=== PATIENT | female | born 1945 | race Caucasian/White ===

== ENCOUNTER 2019-07-27 15:00 | Inpatient (IN) | payer SELFPAY ==
[2019-07-27] MEDS ORDERED: POLYETHYLENE GLYCOL PO SCH (16:00)
[2019-07-27] MEDS: POLYETHYLENE GLYCOL PO SCH ×2 (16:32→17:29)
[2019-07-27] MEDS ORDERED: OLANZapine 10 MG Tab PO SCH (20:00)
[2019-07-27] MEDS ORDERED: OLANZapine 5 MG Tab PO SCH (20:00)
--- NOTE | 2019-07-27 20:44 | PCM.HP.2 ---
H&P History of Present Illness - General Date of Service: 07/27/19 Admit Problem/Dx: Admission Diagnosis/Problem Admission Diagnosis/Problem Colonoscopy - History of Present Illness Initial Comments - Free Text/Narative: HPI: At her Annual Physical in 02/11 she had FOB by FIT ordered and this came back positive. 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 Her colonoscopy was deferred until her Chemo Rx was completed, so she is due for that now. She had a preop physical 07/13/19, but because of her schizophrenia, limited functioning at home, she needs admission to swing bed to assure that she is getting adequate prep, so she needs this physical for the hospitalization. She has had no changes, no URIs or other problems since the clinic visit of 07/13/19, so most of the information is from that, heart and lung exam are repeated. She has chronic atrial fibrillation, is on Eliquis and that has been appropriately held for this procedure. Medical History: -Hospitalized [facility] 1990, 09/24. -Hospitalized in [place] for erosive esophagitis, staph sepsis, anemia from bleeding, transfusion, cholestatic jaundice possibly from Cipro 03/27. -Abnormal Pap, ASCUS 06/01, rep. 11/29 OK, neg 06/02, 06/03 -06/02 L carotid bruit, u.s. showed minimal narrowing, 1-15% -11/30 elevated liver enzymes, repeat 12/31 OK, viral hepatitis studies all normal -03/03 mild elevation of TSH, borderline 06/05, OK 07/07 -05/05 Rx Augmentin for RML pneumonia; F/U requested on CXR, OK 07/07 -12/06 UGI and swallowing evaluation for dysphagia, was OK -02/11 DX of ductal carcinoma L breast, see above Surgical History: -Para 1 in 1988. -No other surgery. -Colonoscopy and EGD 06/01 for screening and dysphagia, hx of erosive esophagitis : hyperplastic colon, benign gastric polyps, next colon 10 yr -Dremel R great toenail 06/01, 11/29 w w w w w Family History: -F d. ' of myocardial infarction. -[place]kin de [place]. '15 d. age 89, had a stroke, lives in [facility]. -B lives in [place], had some illness and is improving 05/31. Still not well , related to alcohol, patient thinks. Social History: [facility] client in [facility] since 2002. Cousin, Kimberly Saldana, of [place] is guardian. Later changed to [place] apparently. Her one child was adopted out. Originally from [place], her mother d. in [place] there age 97. No longer a client of [facility] since discontinuation of the ILP. Systems Review: -Constitutional: Weight is up about 10 pounds after the Chemo Rx for breast CA, some of that weight gain was ankle edema. -HEENT: Dentures above and edentulous below. Hearing good. Past her swallowing eval in 12/06 -Eyes: Gets regular eye exams, wears glasses for reading and taking her medications -Respiratory: Never a smoker, lungs OK, occasional he has a cough but none recently; had a flu shot last fall -Cardiovascular: No exertional chest pain or other problems, temporarily holding the Eliquis that she takes for chronic atrial fibrillation -GI: Her previous colonoscopy was in 06/01, then the POSITIVE FIT test as noted above -Endocrine: On Zocor; her last glucose was 110, probably was nonfasting : Denies any trouble with urine incontinence. Pap was OK 08/06, no more planned. See above regarding her breast CA -Musculoskeletal: She had a mild injury to her R leg a couple weeks ago where she nearly fell, but the pain has now cleared, no trouble with arthritis. -Skin: Denies any problems -Allergy: Denies any seasonal allergies -Neurologic: No syncopal spells, denies significant headaches -Heme: No easy bruising or bleeding, is on Eliquis for atrial fib -Psych: She sees Dr. Sylvester at [facility] every 3 months, no medication changes recently Medications: -Prilosec 20 mg daily -Eliquis 5 mg BID, on hold -Arimidex 1 mg daily, on hold -Also on Pepcid and Zantac, on hold -Zocor 10 mg daily, on hold -Tums, 2 daily -Calcium/vitamin D, 1 BID -Zyprexa 25 mg (20+5) daily Physical Exam: -Constitutional: Affect normal, vital signs OK -HEENT: TMs normal, hearing seems OK; only a few teeth remaining below, dentures above, posterior pharynx and tongue normal -Eyes: Pupils equal, EOMs normal -Neck: No thyroid enlargement or masses, has had a bruit in past but not heard on her most recent exam -Cardiovascular: Rhythm mildly irregular, no murmur, 1+ edema of L foot and ankle only, good dorsalis pedis pulses bilateral -Pulmonary: Lungs clear -Abdominal: Soft and nontender, no organomegaly or masses -: Breasts not examined, no SHIP SCRAPER exam -Musculoskeletal: Joints appear normal, walks with a slight stoop -Neurologic: Speech, gait OK, no tremor noted today though she has had in the past -Skin: No suspicious lesions noted -Psych: Lucid, alert, cooperative with exam Impression: -Positive fecal occult blood by FIT, scheduled for colonoscopy, needs prep in hospital to make sure it is done correctly Problems: -Breast cancer -Schizophrenia, HX of hospitalization and and 09/24 -Impaired Fasting Glucose, last FBS was 99 -Atrial fibrillation, persistent, on Eliquis 5 mg BID -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 D/C back home as soon as she is walking and eating OK. - Related Data Allergies/Adverse Reactions: Allergies Allergy/AdvReac Type Severity Reaction Status Date / Time No Known Allergies Allergy Verified 07/27/19 15:35 Home Medications: Home Meds Apixaban [Eliquis] 5 mg PO BID 02/09/19 [History] OLANZapine [ZyPREXA] 5 mg PO BEDTIME 02/09/19 [History] OLANZapine [ZyPREXA] 20 mg PO BEDTIME 02/09/19 [History] Simvastatin 10 mg PO BEDTIME 02/09/19 [History] Anastrozole [Arimidex] 1 mg PO DAILY 07/14/19 [History] Eucalyptus Oil/Menthol/Camphor [Vicks Vaporub Ointment] 1 applic TOP ASDIRECTED PRN 07/14/19 [History] Famotidine [Pepcid] 20 mg PO DAILY 07/14/19 [History] Omeprazole 20 mg PO DAILY 07/14/19 [History] Calc/D3/Mag/Zn/Vicky/Cuauhtemoc/[place] [Calcium 600 MG Plus Vit D] 1 tab PO BID [History] Calcium Carbonate [Tums] 500 mg PO ASDIRECTED PRN 07/27/19 [History] Diphenhydra/Phenyleph/Acetamin [Cold & Flu Relief Multi-Sym Lq] 30 ml PO Q6H PRN 07/27/19 [History] Past Medical History HEENT History: Reports: Cataract, Other (See Below) Other HEENT History: dental caries Cardiovascular History: Reports: Afib, High Cholesterol, Other (See Below) Other Cardiovascular History: vericose veins. carotid stenosis Gastrointestinal History: Reports: Other (See Below) Other Gastrointestinal History: dysphagia Genitourinary History: Reports: Other (See Below) Other Genitourinary History: cystocele PETROLEUM SAMPLER History: Reports: Other (See Below) Other OB/BYN History: abnormal pap Neurological History: Reports: Other (See Below) Other Neuro History: tremors due to multiple meds Psychiatric History: Reports: Schizophrenia Endocrine/Metabolic History: Reports: Obesity/BMI 30+, Other (See Below) Other Endocrine/Metabolic History: impaired fasting glucose. abnormal TSH Oncologic (Cancer) History: Reports: Breast Dermatologic History: Reports: Other (See Below) Other Dermatologic History: onychodystrophy - Past Surgical History Oncologic Surgical History: Reports: Biopsy of Breast, Lumpectomy Social & Family History - Family History Family Medical History: Noncontributory - Tobacco Use Smoking Status *Q: Never Smoker - Recreational Drug Use Recreational Drug Use: No H&P Review of Systems - Review of Systems: Review Of Systems: See Below Exam - Exam Exam: See Below - Vital Signs Vital Signs: Last Vital Signs Temp 36.9 C 07/27/19 18:00 Pulse 78 07/27/19 18:00 Resp 16 07/27/19 18:00 BP 144/80 H 07/27/19 18:00 Pulse Ox 99 07/27/19 18:00 Weight: 95.98 kg Sepsis Event Note - Evaluation Sepsis Screening Result: No Definite Risk - Focused Exam Vital Signs: Vital Signs Temp Pulse Resp BP Pulse Ox 07/27/19 18:00 36.9 C 78 16 144/80 H 99 07/27/19 15:04 37.7 C 82 16 129/67 97 Date Exam was Performed: 07/27/19 Time Exam was Performed: 20:45 Problem List Initiated/Reviewed/Updated: Yes Orders Last 24hrs: Active Orders 24 hr Category Date Time Status Admission Status [Patient Status] [ADT] Routine ADT 07/27/19 15:05 Active Communication Order [RC] DAILY Care 07/27/19 16:00 Active Communication Order [RC] DAILY Care 07/27/19 16:02 Active Non-Formulary Medication [NF Drug] Med 07/27/19 16:22 Active 0 each PO ASDIRECTED OLANZapine [ZyPREXA] Med 07/27/19 20:00 Active 20 mg PO BEDTIME OLANZapine [ZyPREXA] Med 07/27/19 20:00 Active 5 mg PO BEDTIME Omeprazole Med 07/28/19 08:00 Active 20 mg PO DAILY bisacodyL [Dulcolax] Med 07/27/19 21:00 Once 10 mg PO ONETIME ONE Medication Orders Bisacodyl (Dulcolax) 10 mg PO ONETIME ONE Stop: 07/27/19 21:01 Polyethylene Glycol 235 Gm Bottle Own Med 0 each PO ASDIRECTED VAIBHAV Last Admin: 07/27/19 17:29 Dose: 1 each Admin: 07/27/19 16:32 Dose: 1 each Olanzapine (Zyprexa) 5 mg PO BEDTIME VAIBHAV Olanzapine (Zyprexa) 20 mg PO BEDTIME VAIBHAV Omeprazole (Omeprazole) 20 mg PO DAILY VAIBHAV
[2019-07-27] MEDS ORDERED: BISACODYL 5 MG PO ONE (21:00)
[2019-07-28] MEDS ORDERED: Omeprazole 20 MG Cap.CR PO SCH (08:00)
--- NOTE | 2019-07-30 09:42 | PCM.DCSUM1 ---
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 Admitted to swing bed because she is unable to manage the colonoscopy prep by herself because of schizophrenia and mild cognitive dysfunction. Initial Findings: Unremarkable, see H&P Treatment and Course in Hospital: Her colonoscopy was difficult due to tortuosity and some residual vegetable matter in the colon, but it was completed with finding of 2 cecal polyps, 6 sigmoid polyps, 2 rectal polyps. Pathology report is pending. Condition on Discharge: She was seen by Anesthesiology and cleared for discharge as previously planned, had a meal and vital signs were stable, on 07/28/19. Not seen by PCP. Home to her previous domicile with weekly visits from Home Care Nurse. Diagnosis: Stroke: No Modified Elena Scale: No Signif.Disability Despite Sympt.Able to Carry Out Usual Act./Duties Modified Elena Scale Score: 1 - Discharge Data Discharge Date: 07/28/19 Discharge Disposition: Home, W Home Health Agency 06 Condition: Good - Referral to Home Health Date of Face to Face Encounter: 07/28/19 (Already has this arranged, visit was by black and white printer operator) Reason for Homebound Status: Schizophrenia Primary Care Physician: Rodrick Amezcua MD Skilled Need: Colonoscopy prep - Discharge Plan Home Medications: Home Meds Apixaban [Eliquis] 5 mg PO BID 02/09/19 [History] OLANZapine [ZyPREXA] 5 mg PO BEDTIME 02/09/19 [History] OLANZapine [ZyPREXA] 20 mg PO BEDTIME 02/09/19 [History] Simvastatin 10 mg PO BEDTIME 02/09/19 [History] Anastrozole [Arimidex] 1 mg PO DAILY 07/14/19 [History] Eucalyptus Oil/Menthol/Camphor [Vicks Vaporub Ointment] 1 applic TOP ASDIRECTED PRN 07/14/19 [History] Famotidine [Pepcid] 20 mg PO DAILY 07/14/19 [History] Omeprazole 20 mg PO DAILY 07/14/19 [History] Calc/D3/Mag/Zn/Vicky/Cuauhtemoc/[place] [Calcium 600 MG Plus Vit D] 1 tab PO BID [History] Calcium Carbonate [Tums] 500 mg PO ASDIRECTED PRN 07/27/19 [History] Diphenhydra/Phenyleph/Acetamin [Cold & Flu Relief Multi-Sym Lq] 30 ml PO Q6H PRN 07/27/19 [History] - Discharge Summary/Plan Comment DC Time >30 min.: No - Patient Data Vitals - Most Recent: Last Vital Signs Temp 36.3 C 07/28/19 06:36 Pulse 87 07/28/19 06:36 Resp 20 07/28/19 06:36 BP 125/56 L 07/28/19 06:36 Pulse Ox 100 07/28/19 06:36 Weight - Most Recent: 95.98 kg Med Orders - Current: Current Medications Discontinued Medications Bisacodyl (Dulcolax) 10 mg PO ONETIME ONE Stop: 07/27/19 21:01 Last Admin: 07/28/19 02:58 Dose: 10 mg Polyethylene Glycol 235 Gm Bottle Own Med 17 each PO ASDIRECTED VAIBHAV Polyethylene Glycol 235 Gm Bottle Own Med 0 each PO ASDIRECTED VAIBHAV Last Admin: 07/27/19 17:29 Dose: 1 each Olanzapine (Zyprexa) 5 mg PO BEDTIME [facility] Last Admin: 07/27/19 20:49 Dose: 5 mg Olanzapine (Zyprexa) 20 mg PO BEDTIME [facility] Last Admin: 07/27/19 20:49 Dose: 20 mg Omeprazole (Omeprazole) 20 mg PO DAILY [facility]
== END 2019-07-28 08:10 | disposition home health service (06) | DRG 394 ==
LOC: VM.MS 15:00
PROVIDERS: ADMIT Family Medicine; ATTEND Family Medicine
DX: D12.0 Benign neoplasm of cecum (principal); G24.09 Other drug induced dystonia; I48.20 Chronic atrial fibrillation, unspecified; K63.5 Polyp of colon; K62.1 Rectal polyp; C50.912 Malignant neoplasm of unspecified site of left female breast; F20.9 Schizophrenia, unspecified; T50.905A Adverse effect of unspecified drugs, medicaments and biological substances, initial encounter; G31.84 Mild cognitive impairment of uncertain or unknown etiology; E78.5 Hyperlipidemia, unspecified; E66.9 Obesity, unspecified; I65.29 Occlusion and stenosis of unspecified carotid artery; Z79.899 Other long term (current) drug therapy; Z68.29 Body mass index [BMI] 29.0-29.9, adult
CPT/HCPCS: A9270-GY

== ENCOUNTER 2019-07-28 08:14 | Day surgery (SDC) | payer MEDICARE, MEDICAID ==
[~2019-07-28 08:14] MED LIST: Lactated Ringers 1,000 ML IV SCH
[2019-07-28] MEDS ORDERED: fentaNYL 100 MCG/2 ML SDV ONE (10:31)
[2019-07-28] MEDS ORDERED: Propofol 200 MG/20 ML SDV ONE ×3 (10:31→11:14)
--- NOTE | 2019-07-28 13:25 | OR ---
PREOPERATIVE DIAGNOSIS: Positive FIT test. POSTOPERATIVE DIAGNOSIS: Multiple colon polyps. PROCEDURE PERFORMED: Total flexible colonoscopy. ANESTHESIA: MAC anesthesia. COMPLICATIONS: None. BLOOD LOSS: Minimal. FINDINGS: 1. Cecal polyps x2, 2 mm/4 mm, cold forceps. 2. Sigmoid colon polyps x6, 3 mm and 4 mm, cold forceps and cold snare. 3. Rectal polyps x2, 3 mm, cold forceps. 4. Very tortuous and difficult sigmoid colon. 5. Scattered vegetable matter within the colon. START TIME: 1039. CECUM TIME: 1102. STOP TIME: 1132. BRIEF HPI: Deanna Sandhu is a 74-year-old female with schizophrenia, who has a guardian. She had a positive FIT test recently. She does not think she has had a colonoscopy in the past, but the records are unclear. I did not see a record of one documented previously. She also does have atrial fibrillation and has held her Eliquis prior to this procedure. DESCRIPTION OF PROCEDURE: After informed consent was obtained, the patient was placed in the left lateral decubitus position. MAC anesthesia was induced by Anesthesia colleagues. The endoscope using Endocuff device was introduced in the anal canal and advanced all the way to the cecum. The sigmoid colon was very tortuous and difficult to navigate. We were able to get through it with some abdominal pressure. The appendix and IC valve were photographed. The colonoscope was then slowly withdrawn. There was no pathology other than what is mentioned in the above finding section. Retroflexed view of the rectum was unremarkable. The rectum was desufflated and the colonoscope was withdrawn. BOWEL PREP: Munising class 2. PATHOLOGY: A) Cecal polyp x2 Tubular adenomas B) Sigmoid polyp x5 Hyperplastic polyps C) Rectal polyp x2 Hyperplastic polyps Recommended colonoscopy in 5 years. RKM: 07/28/2019 11:39:10 MODL: 07/28/2019 13:19:07 /[id number] MARCELINA
--- NOTE | 2019-08-09 10:56 | LETTER ---
08/04/2019 Alize Buchanan Ocampo [address] [place] [address], [address] [id number] RE: ALIZE OCAMPO : 1945 Dear Ms. Ocampo: I am writing to you to inform you of the results of your recent colonoscopy. You had a polyp called tubular adenoma. This polyp does not contain cancer, but it can become cancer in the future, which is why I removed them. You also had some hyperplastic polyps which are benign polyps and do not carry a risk of cancer in the future. You will need another colonoscopy in 5 years. Warmest regards, CC: MD Rodrick Jones MD
== END 2019-07-28 13:25 | disposition home or self-care (01) ==
LOC: VM.SDS 08:14
PROVIDERS: ATTEND Student in an Organized Health Care Education/Training Program
DX: D12.0 Benign neoplasm of cecum (principal); K63.5 Polyp of colon; K62.1 Rectal polyp; Q43.8 Other specified congenital malformations of intestine; I48.91 Unspecified atrial fibrillation; E78.5 Hyperlipidemia, unspecified; F20.9 Schizophrenia, unspecified; E66.9 Obesity, unspecified; Z68.29 Body mass index [BMI] 29.0-29.9, adult; Z79.01 Long term (current) use of anticoagulants; Z79.899 Other long term (current) drug therapy
CPT/HCPCS: 00811; 45380; 45385; J2704; J3010; J7120; 88305

== ENCOUNTER 2024-06-15 09:18 | Inpatient (IN) | payer MEDICARE, MEDICAID ==
[2024-06-15] MEDS: Lactated Ringers 1,000 ML IV ONE (09:30)
[2024-06-15 09:56] LABS: BASOPHILS PERCENT AUTO 0.1 % (0.2-1.2); EOSINOPHILS PERCENT AUTO 0.1 % (0.0-4.0); HEMATOCRIT 39.2 % (33.0-47.0); HEMOGLOBIN 12.7 g/dL (12.0-16.0); IMMATURE GRAN ABSOLUTE AUTO 0.02 x10^3/uL (0.00-0.07); LYMPHOCYTES ABSOLUTE AUTO 0.9 x10^3/uL (1.0-4.8); LYMPHOCYTES PERCENT AUTO 7.2 % (25.0-50.0); MEAN CORPUSCULAR HEMOGLOBIN 29.4 pg (26.0-32.0); MEAN CORPUSCULAR HGB CONC 32.4 g/dL (32.0-36.0); MEAN CORPUSCULAR VOLUME 90.7 fL (78.0-93.0); MONOCYTES ABSOLUTE AUTO 0.9 x10^3/uL (0.0-0.8); MONOCYTES PERCENT AUTO 7.3 % (2.0-11.0); NEUTROPHILS ABSOLUTE AUTO 10.3 x10^3/uL (1.8-7.7); NEUTROPHILS PERCENT AUTO 85.1 % (50.0-80.0); PLATELET COUNT,PLT 290 x10^3/uL (130-400); RED BLOOD CELL COUNT 4.32 x10^6/uL (4.00-5.50); WHITE BLOOD CELL COUNT,WBC 12.1 x10^3/uL (4.0-10.0)
[2024-06-15 10:24] LABS: ESTIMATED GFR 57 mL/min (>=60)
[2024-06-15 10:38] LABS: A/G RATIO 0.64; ALANINE AMINOTRANSFERASE,ALT 56 U/L (14-59); ALKALINE PHOSPHATASE 109 U/L (46-116); ANION GAP 12.9 mmol/L (5-15); ASPARTATE AMNIOTRANSFERASE,AST 214 U/L (15-37); BILIRUBIN TOTAL 0.7 mg/dL (0.2-1.0); BLOOD UREA NITROGEN,BUN 22 mg/dL (7-18); C-REACTIVE PROTEIN 9.87 mg/dL (<=0.50); CALCIUM 9.4 mg/dL (8.5-10.1); CARBON DIOXIDE,CO2 30 mmol/L (21-32); CHLORIDE,CL 104 mmol/L (98-107); GLUCOSE RANDOM 118 mg/dL (70-99); LIPASE 35 U/L (19-71); PROTEIN TOTAL,TP 7.7 g/dL (6.4-8.2); SODIUM,NA 144 mmol/L (136-145)
[2024-06-15 10:39] LABS: CREATINE KINASE,CK 4777 U/L (26-192)
[2024-06-15 10:40] LABS: POTASSIUM,K 2.9 mmol/L (3.5-5.1)
[2024-06-15 11:01] LABS: MAGNESIUM 1.8 mg/dL (1.8-2.4); PHOSPHORUS 3.2 mg/dL (2.6-4.7)
[2024-06-15] MEDS: Potassium Chloride Riders 20 MEQ in Premix Bag 1 BAG IV ONE (11:30)
[2024-06-15] MEDS: Potassium Bicarbonate/Cit Ac 10 MEQ Effervescent Tab PO ONE (11:39)
[2024-06-15] MEDS: Ondansetron 4 MG/2 ML SDV IVPUSH ONE (12:09)
[2024-06-15] MEDS: Iopamidol 612 MG/ML 100 ML Bottle IVPUSH ONE (12:49)
[2024-06-15 14:50] LABS: APPEARANCE,URINE CLOUDY (CLEAR); BILIRUBIN,URINE SMALL (NEGATIVE); COLOR,URINE YELLOW (YELLOW); GLUCOSE,URINE NEGATIVE (NEGATIVE); KETONES,URINE NEGATIVE (NEGATIVE); LEUKOCYTE ESTERASE,URINE LARGE (NEGATIVE); NITRITE,URINE NEGATIVE (NEGATIVE); OCCULT BLOOD,URINE MODERATE (NEGATIVE); PH,URINE 8.5 (5.0-8.0); PROTEIN,URINE 30 mg/dL (NEGATIVE); UROBILINOGEN,URINE 0.2 EU/dL (0.2)
[2024-06-15 14:56] LABS: AMORPHOUS SEDIMENT,URINE MODERATE; BACTERIA,URINE MANY /HPF (NOT SEEN); MUCUS,URINE FEW /LPF (NOT SEEN); SQUAMOUS EPITHELIAL CELLS,UR FEW /HPF (NOT SEEN); WBC,URINE 30-40 /HPF (NOT SEEN)
[2024-06-15] MEDS ORDERED: Polyethylene Glycol 3350 Powder 17 GM Packet PO PRN (16:42)
[2024-06-15] MEDS ORDERED: Ondansetron 4 MG Tab.DIS PO PRN (16:42)
[2024-06-15] MEDS ORDERED: [UNRECOGNIZED DRUG - OTHER] PO PRN (16:48)
[2024-06-15] MEDS ORDERED: ACETAMINOPHEN PO PRN (16:48)
[2024-06-15] MEDS ORDERED: DOXYLAMINE PO PRN (16:48)
[2024-06-15] MEDS ORDERED: Calcium Carbonate 1,250 MG/5 ML Susp 5 ML UD Cup PO PRN (17:24)
[2024-06-15 17:30] LABS: LACTIC ACID 1.5 mmol/L (0.4-2.0)
[2024-06-15] MEDS: cefTRIAXone 1 GM Vial IVPUSH SCH (17:56)
[2024-06-15] MEDS: Potassium Chloride 10 MEQ Tab.ER PO SCH (17:57)
[2024-06-15] MEDS: NS with KCl 40mEq 1,000 ML IV SCH (18:04)
[2024-06-15] MEDS: Magnesium Sulfate/Water Premix 2 GM in Premix Bag 1 BAG IV ONE (21:02)
[2024-06-15] MEDS: Pravastatin 20 MG Tab PO SCH (21:02)
[2024-06-15] MEDS: OLANZapine 10 MG Tab PO SCH (21:02)
[2024-06-15] MEDS: Apixaban 5 MG Tab PO SCH (21:03)
[2024-06-15] MEDS: OLANZapine 5 MG Tab PO SCH (21:03)
[2024-06-16] MEDS: Omeprazole 20 MG Cap.CR PO SCH (06:22)
[2024-06-16 06:54] LABS: BASOPHILS PERCENT AUTO 0.1 % (0.2-1.2); EOSINOPHILS ABSOLUTE AUTO 0.1 x10^3/uL (0.0-0.5); EOSINOPHILS PERCENT AUTO 1.5 % (0.0-4.0); HEMATOCRIT 30.9 % (33.0-47.0); IMMATURE GRAN ABSOLUTE AUTO 0.02 x10^3/uL (0.00-0.07); LYMPHOCYTES ABSOLUTE AUTO 1.1 x10^3/uL (1.0-4.8); LYMPHOCYTES PERCENT AUTO 12.1 % (25.0-50.0); MEAN CORPUSCULAR HEMOGLOBIN 29.9 pg (26.0-32.0); MEAN CORPUSCULAR HGB CONC 32.4 g/dL (32.0-36.0); MEAN CORPUSCULAR VOLUME 92.5 fL (78.0-93.0); MONOCYTES ABSOLUTE AUTO 0.8 x10^3/uL (0.0-0.8); MONOCYTES PERCENT AUTO 9.1 % (2.0-11.0); NEUTROPHILS ABSOLUTE AUTO 6.9 x10^3/uL (1.8-7.7); PLATELET COUNT,PLT 223 x10^3/uL (130-400); RED BLOOD CELL COUNT 3.34 x10^6/uL (4.00-5.50); WHITE BLOOD CELL COUNT,WBC 8.9 x10^3/uL (4.0-10.0)
[2024-06-16 07:26] LABS: ANION GAP 9.7 mmol/L (5-15); CALCIUM 8.1 mg/dL (8.5-10.1); CREATININE 0.7 mg/dL (0.55-1.02); EST CRCL DRUG DOSING (CG) 65.74 mL/min; POTASSIUM,K 4.7 mmol/L (3.5-5.1)
[2024-06-16] MEDS: Ferrous Sulfate 325 MG Tab PO SCH (08:29)
[2024-06-16] MEDS: ANASTROZOLE 1 MG PO SCH (09:56)
[2024-06-16] MEDS: Calcium Carbonate/Vitamin D3 1250 MG-5 MCG Tab PO SCH (12:13)
[2024-06-16] MEDS: Anastrozole 1 MG Tab PO SCH (13:11)
[2024-06-17 06:42] LABS: BASOPHILS PERCENT AUTO 0.1 % (0.2-1.2); EOSINOPHILS ABSOLUTE AUTO 0.2 x10^3/uL (0.0-0.5); EOSINOPHILS PERCENT AUTO 2.2 % (0.0-4.0); HEMATOCRIT 29.4 % (33.0-47.0); HEMOGLOBIN 9.5 g/dL (12.0-16.0); IMMATURE GRAN ABSOLUTE AUTO 0.03 x10^3/uL (0.00-0.07); LYMPHOCYTES ABSOLUTE AUTO 1.1 x10^3/uL (1.0-4.8); LYMPHOCYTES PERCENT AUTO 11.7 % (25.0-50.0); MEAN CORPUSCULAR HEMOGLOBIN 29.9 pg (26.0-32.0); MEAN CORPUSCULAR HGB CONC 32.3 g/dL (32.0-36.0); MEAN CORPUSCULAR VOLUME 92.5 fL (78.0-93.0); MONOCYTES ABSOLUTE AUTO 0.8 x10^3/uL (0.0-0.8); MONOCYTES PERCENT AUTO 8.2 % (2.0-11.0); NEUTROPHILS ABSOLUTE AUTO 7.1 x10^3/uL (1.8-7.7); NEUTROPHILS PERCENT AUTO 77.5 % (50.0-80.0); PLATELET COUNT,PLT 212 x10^3/uL (130-400); RED BLOOD CELL COUNT 3.18 x10^6/uL (4.00-5.50); WHITE BLOOD CELL COUNT,WBC 9.1 x10^3/uL (4.0-10.0)
[2024-06-17 07:02] LABS: CALCIUM 8.2 mg/dL (8.5-10.1); CREATININE 0.6 mg/dL (0.55-1.02); EST CRCL DRUG DOSING (CG) 76.69 mL/min; POTASSIUM,K 4.4 mmol/L (3.5-5.1)
[2024-06-17 07:03] LABS: ANION GAP 12.4 mmol/L (5-15)
[2024-06-17] MEDS: VANCOmycin 1.75 GM/350 ML 350 ML IV ONE (10:51)
[2024-06-17] MEDS: VANCOmycin 1.25 GM/250 ML 250 ML IV SCH (20:43)
[2024-06-18 07:20] LABS: BASOPHILS PERCENT AUTO 0.1 % (0.2-1.2); EOSINOPHILS ABSOLUTE AUTO 0.2 x10^3/uL (0.0-0.5); EOSINOPHILS PERCENT AUTO 2.8 % (0.0-4.0); HEMATOCRIT 29.8 % (33.0-47.0); HEMOGLOBIN 9.6 g/dL (12.0-16.0); IMMATURE GRAN ABSOLUTE AUTO 0.04 x10^3/uL (0.00-0.07); LYMPHOCYTES ABSOLUTE AUTO 1.2 x10^3/uL (1.0-4.8); LYMPHOCYTES PERCENT AUTO 13.7 % (25.0-50.0); MEAN CORPUSCULAR HEMOGLOBIN 29.8 pg (26.0-32.0); MEAN CORPUSCULAR HGB CONC 32.2 g/dL (32.0-36.0); MEAN CORPUSCULAR VOLUME 92.5 fL (78.0-93.0); MONOCYTES ABSOLUTE AUTO 0.6 x10^3/uL (0.0-0.8); MONOCYTES PERCENT AUTO 7.4 % (2.0-11.0); NEUTROPHILS ABSOLUTE AUTO 6.4 x10^3/uL (1.8-7.7); NEUTROPHILS PERCENT AUTO 75.5 % (50.0-80.0); PLATELET COUNT,PLT 220 x10^3/uL (130-400); RED BLOOD CELL COUNT 3.22 x10^6/uL (4.00-5.50); WHITE BLOOD CELL COUNT,WBC 8.5 x10^3/uL (4.0-10.0)
[2024-06-18 07:44] LABS: CALCIUM 8.6 mg/dL (8.5-10.1); CREATININE 0.6 mg/dL (0.55-1.02); EST CRCL DRUG DOSING (CG) 76.69 mL/min; POTASSIUM,K 4.6 mmol/L (3.5-5.1)
[2024-06-18 07:49] LABS: ANION GAP 12.6 mmol/L (5-15)
[2024-06-18] MEDS: Sodium Chloride 0.9% 10 ML Syringe FLUSH PRN (09:10)
[2024-06-18] MEDS: Ciprofloxacin 500 MG Tab PO SCH (20:47)
[2024-06-18] MEDS: Acetaminophen 325 MG Tab PO PRN (22:37)
[2024-06-19 08:15] LABS: BASOPHILS PERCENT AUTO 0.1 % (0.2-1.2); EOSINOPHILS ABSOLUTE AUTO 0.2 x10^3/uL (0.0-0.5); EOSINOPHILS PERCENT AUTO 3.1 % (0.0-4.0); HEMATOCRIT 31.3 % (33.0-47.0); HEMOGLOBIN 10.1 g/dL (12.0-16.0); IMMATURE GRAN ABSOLUTE AUTO 0.02 x10^3/uL (0.00-0.07); LYMPHOCYTES ABSOLUTE AUTO 0.7 x10^3/uL (1.0-4.8); MEAN CORPUSCULAR HEMOGLOBIN 30.1 pg (26.0-32.0); MEAN CORPUSCULAR HGB CONC 32.3 g/dL (32.0-36.0); MEAN CORPUSCULAR VOLUME 93.2 fL (78.0-93.0); MONOCYTES ABSOLUTE AUTO 0.4 x10^3/uL (0.0-0.8); MONOCYTES PERCENT AUTO 6.2 % (2.0-11.0); NEUTROPHILS ABSOLUTE AUTO 5.7 x10^3/uL (1.8-7.7); NEUTROPHILS PERCENT AUTO 80.3 % (50.0-80.0); PLATELET COUNT,PLT 273 x10^3/uL (130-400); RED BLOOD CELL COUNT 3.36 x10^6/uL (4.00-5.50); WHITE BLOOD CELL COUNT,WBC 7.1 x10^3/uL (4.0-10.0)
[2024-06-19 08:28] LABS: CALCIUM 8.8 mg/dL (8.5-10.1); CREATININE 0.8 mg/dL (0.55-1.02); EST CRCL DRUG DOSING (CG) 57.52 mL/min
[2024-06-19] MEDS: VANCOmycin 1 GM in Sodium Chloride 0.9% 250 ML IV SCH (08:28)
[2024-06-20] MEDS ORDERED: VANCOmycin 750 MG in Sodium Chloride 0.9% 250 ML IV SCH (09:30)
== END 2024-06-19 14:40 | disposition swing bed (61) | DRG 558 ==
LOC: VM.ED 09:18 → VM.MS 14:20
PROVIDERS: ADMIT Physician Assistant; ATTEND Physician Assistant
DX: M62.82 Rhabdomyolysis (principal); N39.0 Urinary tract infection, site not specified; L89.90 Pressure ulcer of unspecified site, unspecified stage; F20.9 Schizophrenia, unspecified; I48.91 Unspecified atrial fibrillation; E66.9 Obesity, unspecified; I65.29 Occlusion and stenosis of unspecified carotid artery; G24.9 Dystonia, unspecified; E78.00 Pure hypercholesterolemia, unspecified; N81.10 Cystocele, unspecified; E86.0 Dehydration; E87.6 Hypokalemia; K21.9 Gastro-esophageal reflux disease without esophagitis; D50.9 Iron deficiency anemia, unspecified; L60.3 Nail dystrophy; W19.XXXA Unspecified fall, initial encounter; L89.229 Pressure ulcer of left hip, unspecified stage; L89.899 Pressure ulcer of other site, unspecified stage; Z85.3 Personal history of malignant neoplasm of breast; Z68.33 Body mass index [BMI] 33.0-33.9, adult; Z79.01 Long term (current) use of anticoagulants; Z98.890 Other specified postprocedural states; Z79.899 Other long term (current) drug therapy
CPT/HCPCS: 36415; 51702; 51798; 70450; 71260; 72125; 73030-LT; 73060-LT; 73090-LT; 74177; 80048; 80053; 80202; 81001; 82550; 83605; 83690; 83735; 84100; 84132; 84484; 85025; 86140; 87040; 87077; 87086; 87088; 87147; 87186; 93005; 93010; 96361; 96365; 96375; 97110-GO; 97110-GP; 97116-GP; 97161-GP; 97165-GO; 97530-GO; 97535-GO; 99238; 99284; 99285-25; A9270-GY; J0696; J2405; J3372; J3475; J3480; J7050; J7120; Q9967

== ENCOUNTER 2024-06-19 11:05 | Inpatient (IN) | payer MEDICARE, MEDICAID ==
[2024-06-19] MEDS ORDERED: DOXYLAMINE PO PRN (12:08)
[2024-06-19] MEDS ORDERED: Calcium Carbonate/Vitamin D3 1250 MG-5 MCG Tab PO PRN (12:08)
[2024-06-19] MEDS ORDERED: ACETAMINOPHEN PO PRN (12:08)
[2024-06-19] MEDS ORDERED: Eucalyptus Oil/Menthol/Camphor [Vicks Vaporub Ointment] TOP PRN (12:08)
[2024-06-19] MEDS ORDERED: [UNRECOGNIZED DRUG - OTHER] PO PRN (12:08)
[2024-06-19] MEDS ORDERED: Ondansetron 4 MG Tab.DIS PO PRN (12:12)
[2024-06-19] MEDS: Acetaminophen 500 MG Tab PO SCH (16:29)
[2024-06-19] MEDS: Potassium Chloride 10 MEQ Tab.ER PO SCH (18:11)
[2024-06-19] MEDS: OLANZapine 10 MG Tab PO SCH (20:12)
[2024-06-19] MEDS: Pravastatin 20 MG Tab PO SCH (20:13)
[2024-06-19] MEDS: OLANZapine 5 MG Tab PO SCH (20:13)
[2024-06-19] MEDS: Ciprofloxacin 500 MG Tab PO SCH (20:13)
[2024-06-19] MEDS: Apixaban 5 MG Tab PO SCH (20:13)
[2024-06-19] MEDS: Sodium Chloride 0.9% 10 ML Syringe FLUSH SCH (20:14)
[2024-06-20] MEDS: Anastrozole 1 MG Tab PO SCH (08:44)
[2024-06-20] MEDS: Omeprazole 20 MG Cap.CR PO SCH (08:44)
[2024-06-20] MEDS: VANCOmycin 750 MG in Sodium Chloride 0.9% 250 ML IV SCH (08:47)
[2024-06-21] MEDS: Ferrous Sulfate 325 MG Tab PO SCH (10:55)
[2024-06-21] MEDS: Calcium Carbonate/Vitamin D3 1250 MG-5 MCG Tab PO SCH (11:00)
[2024-06-21] MEDS ORDERED: Calcium Carbonate 750 MG Tab.Chew PO PRN (14:03)
[2024-06-21] MEDS: ceFAZolin 2 GM Vial IVPUSH SCH (15:34)
== END 2024-07-06 10:00 | DRG 947 ==
LOC: VM.MS 14:44 → UNDOADMIN 14:44
PROVIDERS: ADMIT Nurse Practitioner Family; ATTEND Nurse Practitioner Family
PROC: 0T9B70Z Drainage of Bladder with Drainage Device, Via Natural or Artificial Opening (ICD-10-PCS; principal; 2024-06-25)
DX: R53.81 Other malaise (principal); A41.01 Sepsis due to Methicillin susceptible Staphylococcus aureus; M62.82 Rhabdomyolysis; E87.6 Hypokalemia; F20.9 Schizophrenia, unspecified; I48.91 Unspecified atrial fibrillation; D50.9 Iron deficiency anemia, unspecified; E78.00 Pure hypercholesterolemia, unspecified; E66.9 Obesity, unspecified; H26.9 Unspecified cataract; L89.90 Pressure ulcer of unspecified site, unspecified stage; R79.89 Other specified abnormal findings of blood chemistry; K21.9 Gastro-esophageal reflux disease without esophagitis; Z66 Do not resuscitate; Z79.1 Long term (current) use of non-steroidal anti-inflammatories (NSAID); Z79.899 Other long term (current) drug therapy; Z85.3 Personal history of malignant neoplasm of breast; Z79.02 Long term (current) use of antithrombotics/antiplatelets; Z79.01 Long term (current) use of anticoagulants; Z98.890 Other specified postprocedural states
CPT/HCPCS: 36415; 51702; 80202; 82947; 97110-GO; 97110-GP; 97116-GP; 97164-GP; 97530-GO; 97535-GO; 99307; 99307-GT; A9270-GY; J0690; J3370; J7050

== ENCOUNTER 2025-02-27 21:10 | Emergency (ER) | payer MEDICARE, MEDICAID ==
[~2025-02-27 21:10] MED LIST changes: -Lactated Ringers 1,000 ML IV SCH; +Sodium Chloride 0.9% 10 ML Syringe FLUSH PRN
[2025-02-27 21:52] LABS: BASOPHILS ABSOLUTE AUTO 0.0 x10^3/uL (0.0-0.2); BASOPHILS PERCENT AUTO 0.4 % (0.2-1.2); EOSINOPHILS ABSOLUTE AUTO 0.1 x10^3/uL (0.0-0.5); EOSINOPHILS PERCENT AUTO 1.3 % (0.0-4.0); IMMATURE GRAN ABSOLUTE AUTO 0.03 x10^3/uL (0.00-0.07); IMMATURE GRAN PERCENT AUTO 0.40 % (0.00-0.43); LYMPHOCYTES ABSOLUTE AUTO 1.2 x10^3/uL (1.0-4.8); LYMPHOCYTES PERCENT AUTO 15.2 % (25.0-50.0); MONOCYTES ABSOLUTE AUTO 0.8 x10^3/uL (0.0-0.8); MONOCYTES PERCENT AUTO 9.9 % (2.0-11.0); NEUTROPHILS ABSOLUTE AUTO 5.5 x10^3/uL (1.8-7.7); NEUTROPHILS PERCENT AUTO 72.8 % (50.0-80.0); PLATELET COUNT,PLT 246 x10^3/uL (130-400); RED BLOOD CELL COUNT 1.95 x10^6/uL (4.00-5.50); WHITE BLOOD CELL COUNT,WBC 7.6 x10^3/uL (4.0-10.0)
[2025-02-27 22:05] LABS: A/G RATIO 0.72; ALANINE AMINOTRANSFERASE,ALT 7 U/L (14-59); ASPARTATE AMNIOTRANSFERASE,AST 14 U/L (15-37); BILIRUBIN TOTAL 0.2 mg/dL (0.2-1.0); BLOOD UREA NITROGEN,BUN 15 mg/dL (7-18); CARBON DIOXIDE,CO2 25 mmol/L (21-32); CHLORIDE,CL 104 mmol/L (98-107); CREATININE 1.0 mg/dL (0.55-1.02); ESTIMATED GFR 57 mL/min (>=60); GLUCOSE RANDOM 127 mg/dL (70-99); POTASSIUM,K 4.3 mmol/L (3.5-5.1); PROTEIN TOTAL,TP 6.2 g/dL (6.4-8.2); SODIUM,NA 136 mmol/L (136-145)
[2025-02-27] MEDS: Iopamidol 755 Mg/ML 100 ML Bottle IVPUSH ONE (23:47)
== END 2025-02-28 01:43 | disposition short-term general hospital (02) ==
LOC: VM.ED 21:10
DX: D64.9 Anemia, unspecified (principal); I48.91 Unspecified atrial fibrillation; E78.00 Pure hypercholesterolemia, unspecified; Z85.3 Personal history of malignant neoplasm of breast; Z79.01 Long term (current) use of anticoagulants; Z79.899 Other long term (current) drug therapy
CPT/HCPCS: 36415; 71045; 71275; 80053; 83605; 85025; 86140; 86850; 86870; 86880; 86900; 86901; 86905; 87040; 87428-QW; 99284; 99285; Q9967